=== PATIENT | male | born 1950 | race African-American/Black ===

== ENCOUNTER 2018-08-28 09:24 | Emergency (ER) | payer OTHER, BC ==
[~2018-08-28] VITALS: Ht 180.3 cm; Wt 95.7 kg
[2018-08-28] MEDS ORDERED: DIOVAN40 MG (09:56)
[2018-08-28] MEDS ORDERED: ASA81 MG (09:57)
[2018-08-28] MEDS ORDERED: ELOCON45 G1 TOP (13:11)
[2018-08-28] MEDS ORDERED: ZYRTEC10 M3 PO (13:11)
== END 2018-08-28 13:25 | disposition home or self-care (01) ==
LOC: ER 09:24
DX: R21 Rash and other nonspecific skin eruption (principal)